=== PATIENT | male | born 1995 | race Caucasian/White ===

== ENCOUNTER 2016-11-09 08:32 | Emergency (ER) | payer BC ==
--- NOTE | 2016-11-09 10:06 | EDPHY ---
H & P Smoking Status: Current every day smoker Time Seen by Provider: 11/09/16 09:45 HPI/ROS: CHIEF COMPLAINT: Cough, fever, shortness of breath HISTORY OF PRESENT ILLNESS: 21-year-old male presents to the emergency department by private vehicle complaining of nonproductive cough and fever for last 4 days. He states this morning he woke up with pain in his chest and he felt more short of breath. He took some ibuprofen and DayQuil prior to coming and he feels that the pain is better although not resolved. He does smoke cigarettes as well as marijuana. Denies recent travel. No known ill contacts. No abdominal pain. No neck pain. No headache. He did not receive a flu shot this year. REVIEW OF SYSTEMS: Constitutional: Fever as above Eyes: No double or blurry vision. ENT: No sore throat. Respiratory: Cough, shortness of breath Cardiac: Anterior chest pain Gastrointestinal: No abdominal pain, vomiting or diarrhea. Genitourinary: No dysuria. Musculoskeletal: No neck or back pain. Skin: No rashes. Neurological: No headache. 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 142/82, 97% on room air, afebrile temperature of 36.6, no respiratory distress. Eyes: Pupils equal and round. Extraocular motions are all intact. ENT: Mouth: Mucous membranes moist. Respiratory: No wheezing, rhonchi, or rales, lungs are clear to auscultation. Nontender to palpate the anterior aspect of the chest. No palpable crepitus. Cardiovascular: Regular rate and rhythm. Gastrointestinal: Abdomen is soft and nontender, no masses, no rebound or guarding, bowel sounds normal. Neurological: Alert and oriented x 3, cranial nerves II through XII grossly intact Skin: Warm and dry, no rashes. Musculoskeletal: Nontender to palpate along the cervical, thoracic or lumbar spine. Neck is supple. Extremities: Full range of motion and no peripheral edema. Psychiatric: Patient is oriented X 3, there is no agitation. (Elsie Wynne) Constitutional: Initial Vital Signs Temperature (C) 36.6 C 11/09/16 08:35 Heart Rate 79 11/09/16 08:35 Respiratory Rate 16 11/09/16 08:35 Blood Pressure 142/82 H 11/09/16 08:35 O2 Sat (%) 97 11/09/16 08:35 O2 Delivery Mode Room Air Allergies/Adverse Reactions: No Known Allergies Allergy (Unverified 11/09/16 08:35) Home Medications: Medication Instructions Recorded NK [No Known Home Meds] 11/09/16 Medical Decision Making ED Course/Re-evaluation: 21-year-old male presents to the emergency department by private vehicle feeling short of breath and having cough for last few days. O2 saturation was normal. Chest x-ray reveals no evidence of pneumonia, pneumothorax or other abnormality. Patient has no pain now. I doubt this patient has a pulmonary embolism. He denies pleuritic chest pain. He has had URI symptoms including cough for last few days. No known ill contacts or recent travel. I doubt this patient has pneumonia. His chest x-rays unremarkable. I explained to the patient that he likely has some costochondritis given his anterior chest wall pain that improved with ibuprofen. Patient is comfortable being discharged home. (Elsie Wynne) Differential Diagnosis: Including but not limited to costochondritis, chest wall pain, pleurisy, viral upper respiratory infection, pneumonia, bronchitis, pulmonary embolism, pneumothorax (Elsie Wynne) Other Provider: The patient wasevaluatedand managed by themidlevel provider. My co- signature indicates that Juan Antonio reviewed this chart and I agree with the findings and plan of care asdocumented. I am the secondary supervising physician. (Divya Escalona) Departure - Departure Disposition: Home, Routine, Self-Care Clinical Impression: Viral upper respiratory infection, Chest wall pain, Costochondritis Condition: Good Instructions: Costochondritis (ED), Upper Respiratory Infection (ED) Additional Instructions: Ibuprofen 600mg every 8 hours for pain as directed. Return if you feel short of breath, worsening chest pain, or if you feel worse in any way. Referrals: Idania Gold MD [Medical Doctor] - 2-3 days, call for appt. 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
[2016-11-09 11:20] VITALS: BP 135/90; PULSE 68; RESP 18; TEMP 98.2; O2SAT 94
== END 2016-11-09 11:20 | disposition home or self-care (01) ==
DX: M94.0 Chondrocostal junction syndrome [Tietze] (principal); J06.9 Acute upper respiratory infection, unspecified